=== PATIENT | female | born 1990 | race Caucasian/White ===

== ENCOUNTER 2020-06-20 08:34 | Emergency (ER) | payer MEDICAID, OTHER ==
[2020-06-20 08:41] VITALS: PULSE 81; RESP 18; TEMP 98
[2020-06-20 08:42] VITALS: BP 137/90
[2020-06-20] MEDS ORDERED: KETOROLAC 15 MG/ML 1 ML VIAL IM STA (08:52)
[2020-06-20] MEDS ORDERED: DIAZEPAM 5 MG/ML 2 ML INJ IM ONE (08:52)
--- NOTE | 2020-06-20 08:56 | ED ---
General Adult HPI - General Chief complaint: Back Pain/Injury Stated complaint: [facility]-back injury Time Seen by Provider: 06/20/20 08:40 Source: patient, RN notes reviewed, old records reviewed Mode of arrival: ambulatory Limitations: no limitations - History of Present Illness Initial comments: Is a 30-year-old female who presents emergency Department complaining of lower back pain. Patient states that she was at work and stepped into a depression in the walkway and hurt her lower back. Patient denies numbness or weakness. Patient denies any urinary retention or urinary incontinence. Patient states the pain is a little more on the right side than the left. Patient states she's had multiple falls in the past and hasn't been checked up for so she is wondering if she has had injuries from previous falls. Patient denies any other complaints at this time. - Related Data Previous Rx's Medication Instructions Recorded predniSONE 50 mg PO DAILY #5 tablet 01/15/17 Cyclobenzaprine [Flexeril] 10 mg PO TID #20 tab 06/20/20 Ketorolac [Toradol] 10 mg PO Q6HR #15 tab 06/20/20 Allergies Allergy/AdvReac Type Severity Reaction Status Date / Time No Known Allergies Allergy Verified 06/20/20 08:35 Review of Systems ROS Statement: Those systems with pertinent positive or pertinent negative responses have been documented in the HPI. ROS Other: All systems not noted in ROS Statement are negative. Past Medical History Past Medical History: No Reported History Additional Past Medical History / Comment(s): back pain, rectal bleeding "comes & goes" History of Any Multi-Drug Resistant Organisms: None Reported Past Surgical History: No Surgical Hx Reported Additional Past Surgical History / Comment(s): COLONOSCOPY Past Anesthesia/Blood Transfusion Reactions: No Reported Reaction Additional Past Anesthesia/Blood Transfusion Reaction / Comment(s): no history of anesthesia or blood transfusions Past Psychological History: Anxiety, Depression Smoking Status: Current every day smoker Past Alcohol Use History: Rare Past Drug Use History: Marijuana - Past Family History Mother Family Medical History: No Reported History Additional Family Medical History / Comment(s): "a few" breast ca biopsies. Breast ca: 3 aunts and great grandmother Father History Unknown: Yes General Exam - General Exam Comments Initial Comments: GENERAL: Patient is well-developed and well-nourished. Patient is nontoxic and well- hydrated and is in mild distress. ENT: Neck is soft and supple. No significant lymphadenopathy is noted. Oropharynx is clear. Moist mucous membranes. Neck has full range of motion without eliciting any pain. EYES: The sclera were anicteric and conjunctiva were pink and moist. Extraocular movements were intact and pupils were equal round and reactive to light. Eyelids were unremarkable. SKIN: Skin is clear with no lesions or rashes and otherwise unremarkable. NEUROLOGIC: Patient is alert and oriented x3. Cranial nerves II through XII are grossly intact. Motor and sensory are also intact. Normal speech, volume and content. Symmetrical smile. Straight leg test is negative bilaterally MUSCULOSKELETAL: Normal extremities with adequate strength and full range of motion. No lower extremity swelling or edema. No calf tenderness. Patient has some mild tenderness in this paraspinous muscles on the right at about L4 5 LYMPHATICS: No significant lymphadenopathy is noted PSYCHIATRIC: Normal psychiatric evaluation. Limitations: no limitations Course Vital Signs 06/20/20 06/20/20 08:36 08:41 Temperature 98 F Pulse Rate 81 Respiratory 18 Rate Blood Pressure 137/90 O2 Sat by Pulse 96 Oximetry Medical Decision Making - Medical Decision Making X-ray of the lumbar spine shows pars defects some degenerative disc disease and spondylolisthesis of L3 and L4. Patient received Toradol and Flexeril and felt considerably better. Disposition Clinical Impression: Strain of lumbar region Disposition: HOME SELF-CARE Instructions (If sedation given, give patient instructions): Acute Low Back Pain (ED) Prescriptions: Cyclobenzaprine [Flexeril] 10 mg PO TID #20 tab Ketorolac [Toradol] 10 mg PO Q6HR #15 tab Is patient prescribed a controlled substance at d/c from ED?: No Referrals: Zhou Matias MD [Primary Care Provider] - 1-2 days Time of Disposition: 10:22
--- NOTE | 2020-06-20 10:01 | XR ---
EXAMINATION TYPE: XR lumbosacral spine 5 views DATE OF EXAM: 06/20/2020 Comparison: None Clinical History: 30-year-old female with multiple recent falls, low back pain and difficulty moving, Trauma Findings: There is severe degenerative change at the L4-L5 level with disc space narrowing, endplate sclerosis and spondylosis and grade 1, nearly grade 2 anterolisthesis. Suspect bilateral L4 pars defects at thi s level. Unable to exclude pars defects on the bilateral L2 levels and right L3 level as well. There is some dextroconvex scoliotic curvature of the lumbar spine. Mild multilevel disc disease. Facet art hropathy lower lumbar spine. Impression: 1. Grade 1, nearly grade 2 anterolisthesis at L4-L5 with associated severe degenerative disc disease. Findings secondary to underlying bilateral L4 pars defects. 2. Unable to exclude pars defects on both sides at L2 and possible right L3 pars defect as well. 3. No vertebral compression collapse.
== END 2020-06-20 10:30 | disposition home or self-care (01) ==
LOC: EC 08:34
DX: S39.012A Strain of muscle, fascia and tendon of lower back, initial encounter (principal); M43.16 Spondylolisthesis, lumbar region; M51.36 Other intervertebral disc degeneration, lumbar region; F17.200 Nicotine dependence, unspecified, uncomplicated; Z91.81 History of falling; W18.42XA Slipping, tripping and stumbling without falling due to stepping into hole or opening, initial encounter; Y92.69 Other specified industrial and construction area as the place of occurrence of the external cause; Y99.0 Civilian activity done for income or pay
CPT/HCPCS: 72110; 99284; 96372 ×2; J3360; J1885